=== PATIENT | male | born 1940 | race Caucasian/White ===

== ENCOUNTER → 2016-07-28 | Outpatient (CLI) | payer OTHER | LOC: FIMAGING 09:11 | PROVIDERS: ATTEND Physician Assistant | DX: M51.36 Other intervertebral disc degeneration, lumbar region (principal); M48.06 Spinal stenosis, lumbar region; M54.5 Low back pain ==

== ENCOUNTER 2017-02-23 10:30 | Inpatient (IN) | payer OTHER ==
--- NOTE | 2017-02-23 10:49 | CPEKG ---
Heart Rate: 74 RR Interval: 811 P-R Interval: 184 QRSD Interval: 88 QT Interval: 388 QTC Interval: 431 P Headland: 62 QRS Headland: 1 T Wave Headland: 2 EKG Severity - NORMAL ECG - EKG Impression: SINUS RHYTHM Electronically Signed By: Sabrina Florez 23-Feb-2017 15:13:10
--- NOTE | 2017-02-23 10:50 | EDPHY ---
H & P Time Seen by Provider: 02/23/17 10:45 HPI/ROS: CHIEF COMPLAINT: Left arm weakness and numbness HISTORY OF PRESENT ILLNESS: The patient is an anticoagulated 76 y/o male who complains of left arm weakness and numbness. He awoke at 1:30 a.m. this morning with numbness and weakness of the left upper extremity. He went back to sleep and when he awoke later this morning, the weakness and numbness were still present. He is currently having numbness and weakness, but his range of motion and movement of his fingers have improved. The numbness is primarily located in his left forearm. In addition to the left arm numbness, he also complain of neck pain that radiates to his left shoulder, onset several days ago. He has a history of a CVA in 2008, for which he takes Plavix and Aspirin now. He did not take aspirin or Plavix today. Denies chest pain, difficulty breathing, gait change, headache recent head or neck trauma or other pertinent symptoms. REVIEW OF SYSTEMS: Aside from elements discussed in the HPI, a comprehensive 10-point review of systems was reviewed and is negative. Past Medical/Surgical History: PMH: CVA 2009, hypertension, bursitis Social History: at beside, lives in [place], retired. Smoking Status: Former smoker Physical Exam: General Appearance: Alert, pleasant Eyes: Pupils equal and round, no conjunctival pallor or injection ENT, Mouth: Mucous membranes moist Neck: Tenderness in left neck and shoulder Respiratory: Lungs are clear to auscultation Cardiovascular: Regular rate and rhythm Gastrointestinal: Abdomen is soft and non-tender Neurological: Alert, oriented x3, cranial nerves II through XII intact, motor 4 +/5 left upper extremity, motor otherwise intact, decreased sensation to light touch in left forearm/hand, normal gait Skin: Warm and dry, no rash Extremities: Nontender, no pedal edema Psychiatric: Mood and affect normal Constitutional: Initial Vital Signs Temperature (C) 36.6 C 02/23/17 10:31 Heart Rate 72 02/23/17 10:31 Respiratory Rate 18 02/23/17 10:31 Blood Pressure 199/100 H 02/23/17 10:31 O2 Sat (%) 95 02/23/17 10:31 O2 Delivery Mode Room Air Allergies/Adverse Reactions: sulfites Allergy (Mild, Uncoded 02/23/17 10:38) GI upset Home Medications: Medication Instructions Recorded Acetaminophen [Tylenol ES 500 mg 500 mg PO TID 02/23/17 (*)] Aspirin [Aspirin 81mg (*)] 81 mg PO DAILY 02/23/17 Calcium Carbonate [Tums 500MG (*)] 1,000 - 1,500 mg PO HS 02/23/17 Calcium Carbonate [Tums 500MG (*)] 500 mg PO DAILY18 02/23/17 Cholecalciferol Vit D3 [Vitamin D3 1,000 units PO DAILY 02/23/17 (*)] Cholestyramine (with Sugar) 4 gm PO DAILY 02/23/17 [Cholestyramine Packet] Clopidogrel Bisulfate [Plavix (*)] 75 mg PO DAILY 02/23/17 Glucosamine Sulfate [Glucosamine 500 mg PO DAILY 02/23/17 Sulfate 500 MG (*)] Herbals/Supplements -Info Only 1 ea PO DAILY 02/23/17 Losartan Potassium [Cozaar 50 mg 100 mg PO DAILY 02/23/17 (*)] Ranitidine HCl [Zantac] 150 mg PO DAILY 02/23/17 Medical Decision Making - Diagnostics EKG Interpretation: EKG interpreted by me reveals normal sinus rhythm, normal axis, normal intervals , ST and T segments normal. Interpretation: normal EKG with rate of 74 Imaging Results: Imaging Impressions Head CT 02/23/17 10:46 Impression: 1. No acute intracranial hemorrhage or evidence of acute cortical ischemia. 2. Atrophy and diffuse nonspecific white matter disease. Findings discussed with Emergency Department physician, Sabrina Florez, at 1129 hours 02/23/2017. Imaging: Discussed imaging studies w/ housecalls nurse Radiologist, I viewed and interpreted images myself ED Course/Re-evaluation: The patient is a 76 y/o male who presents with left upper extremity weakness. Given that he awoke with the symptoms at 1:30 a.m. this morning, he is not a tPA candidate. 1125: Spoke with radiologist, he reports the patient's head CT is negative for acute findings. CT results discussed with the patient. Neurologic exam is unchanged. 1132: Consulted with hospitalist service, Dr. Ashford accepts admission of this patient. 1133: Reassessed patient; discussed imaging findings and plan for admission. Patient is comfortable with this plan. The patient passed a swallowing study. Plavix and aspirin given. Neurologic exam remains unchanged. Differential Diagnosis: Altered mental status including but not limited to hypoglycemia, infectious process, electrolyte abnormality, head injury and intoxicants. - Data Points Laboratory Results: Laboratory Results 02/23/17 10:50 02/23/17 10:50 02/23/17 02/23/17 10:50 10:50 WBC 6.55 10^3/uL 10^3/uL (3.80-9.50) RBC 4.53 10^6/uL 10^6/uL (4.40-6.38) Hgb 15.9 g/dL g/dL (13.7-17.5) Hct 47.0 % % (40.0-51.0) MCV 103.8 fL H fL (81.5-99.8) MCH 35.1 pg H pg (27.9-34.1) MCHC 33.8 g/dL g/dL (32.4-36.7) RDW 12.9 % % (11.5-15.2) Plt Count 242 10^3/uL 10^3/uL (150-400) MPV 9.8 fL fL (8.7-11.7) Neut % (Auto) 62.6 % % (39.3-74.2) Lymph % (Auto) 26.0 % % (15.0-45.0) [place] % (Auto) 9.2 % % (4.5-13.0) Eos % (Auto) 0.9 % % (0.6-7.6) Baso % (Auto) 0.5 % % (0.3-1.7) Nucleat RBC Rel Count 0.0 % % (0.0-0.2) Absolute Neuts (auto) 4.11 10^3/uL 10^3/uL (1.70-6.50) Absolute Lymphs (auto) 1.70 10^3/uL 10^3/uL (1.00-3.00) Absolute Monos (auto) 0.60 10^3/uL 10^3/uL (0.30-0.80) Absolute Eos (auto) 0.06 10^3/uL 10^3/uL (0.03-0.40) Absolute Basos (auto) 0.03 10^3/uL 10^3/uL (0.02-0.10) Absolute Nucleated RBC 0.00 10^3/uL 10^3/uL (0-0.01) Immature Gran % 0.8 % % (0.0-1.1) Immature Gran # 0.05 10^3/uL 10^3/uL (0.00-0.10) Sodium 136 mEq/L mEq/L (134-144) Potassium 4.6 mEq/L mEq/L (3.5-5.2) Chloride 101 mEq/L mEq/L (97-110) Carbon Dioxide 22 mEq/l mEq/l (22-31) Anion Gap 13 mEq/L mEq/L (8-16) BUN 21 mg/dL mg/dL (7-23) Creatinine 1.0 mg/dL mg/dL (0.7-1.3) Estimated GFR > 60 Glucose 88 mg/dL mg/dL (70-100) Calcium 11.1 mg/dL H mg/dL (8.5-10.4) Phosphorus 4.1 mg/dL mg/dL (2.5-4.5) Departure - Departure Disposition: [facility] Inpatient Acute Clinical Impression: Stroke Qualifiers: CVA mechanism: other Qualified Code(s): I63.8 - Other cerebral infarction Condition: Fair Report Scribed for: Sabrina Florez Report Scribed by: Laurita Nevarez Date of Report: 02/23/17 Time of Report: 10:46 Physician Review and Approval Statement: 02/23/17 10:46 Portions of this note were transcribed by a medical record technician. I personally performed a history, physical exam, medical decision making, and confirmed accuracy of information the transcribed note.
[2017-02-23 11:00] LABS: % IMMATURE GRANULYOCYTES 0.8 % (0.0-1.1); ABSOLUTE IMMATURE GRANULOCYTES 0.05 10^3/uL (0.00-0.10); ADD DIFF? NO; ADD MORPH? NO; ADD SCAN? NO; ATYPICAL LYMPHOCYTE FLAG 0 (0-99); FRAGMENT RBC FLAG 0 (0-99); HEMOGLOBIN 15.9 g/dL (13.7-17.5); LEFT SHIFT FLG 0 (0-99); LIPEMIA HEMOLYSIS FLAG 90 (0-99); MEAN CELL HEMOGLOBIN 35.1 pg (27.9-34.1); MEAN CELL HEMOGLOBIN CONCENTR. 33.8 g/dL (32.4-36.7); MEAN CELL VOLUME 103.8 fL (81.5-99.8); MEAN PLATELET VOLUME 9.8 fL (8.7-11.7); PLATELET CLUMPS FLAG 10 (0-99); PLATELET COUNT 242 10^3/uL (150-400); RED BLOOD CELL COUNT 4.53 10^6/uL (4.40-6.38); RED CELL DISTRIBUTION WIDTH 12.9 % (11.5-15.2)
[2017-02-23 11:25] LABS: ANION GAP 13 mEq/L (8-16); CALCIUM 11.1 mg/dL (8.5-10.4); CARBON DIOXIDE 22 mEq/l (22-31); CHLORIDE 101 mEq/L (97-110); GLOMERULAR FILTRATION RATE > 60; GLUCOSE 88 mg/dL (70-100); POTASSIUM 4.6 mEq/L (3.5-5.2); SODIUM 136 mEq/L (134-144)
--- NOTE | 2017-02-23 13:59 | PDGENHP ---
History and Physical History and Physical: HISTORY AND PHYSICAL CC:Left arm numbness and weakness HISTORY: The patient reports waking approximately 1 o'clock this morning with weakness and numbness in his left arm. At that point he went back to sleep and woke up with symptoms still present. Comes into the ER now with some improving numbness and weakness still present. There are no other acute focal neurologic changes. He did notice onset of some neck pain a couple of days ago though this sounds like a left trapezoid muscular pain. No headache, no trauma, no fevers, no palpitations, no angina He does take a daily aspirin and Plavix There is a history of a stroke in 2008 detailed below in PMH ROS: A comprehensive 10 system review revealed no other significant findings PAST MEDICAL HISTORY: Stroke in 2008 with good recovery (patient reports that this at that time involved left arm weakness and numbness and some posture weakness, but resolved quickly, ? TIA as he reports his MRI was normal), currently taking aspirin and Plavix Hypertension Hypercholesterolemia on therapy Chronic low back pain Benign prostatic hypertrophy Erectile dysfunction Low testosterone Peripheral neuropathy Obesity Tubular adenoma of the rectum FAMILY MEDICAL HISTORY: coronary artery disease and diabetes SOCIAL HISTORY: and lives with his Former smoker quit many years ago MEDICATIONS: The patients list has been reconciled by our clinical pharmacist in the EMR. I have reviewed the list and ordered appropriate medicines. 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 and wrist and finger extension on the left, otherwise no focal weakness; sensation in limb is now intact Skin: warm, dry, good color, no rash HEENT: normal Neck: no mass or jvd Resps: relaxed Lungs: clear breath sounds Heart: regular, no murmur Abdomen: soft, nondistended, nontender, +BS, no mass Upper Extremities: normal Lower Extremities: no edema, warm No Bleeding or bruising IV site: looks normal LABORATORY DATA: cbc with microcytosis (chronic but no anemia) chem with Ca of 11.1 (no prior hypercalcemia) RADIOLOGY STUDIES: Head CT with no acute abnormality 12 LEAD EKG: my personal interpretation of the tracing: Sinus rhythm without any abnormalities noted ASSESSMENT: -ACUTE ONSET LUE WEAKNESS AND NUMBNESS -I suspect this is a stroke with some ongoing mild weakness, less likely a peripheral nerve or brachial plexus etiology -HYPERCALCEMIA -MICROCYTOSIS, NO PRIOR B12 FOLATE MEASURES -HX OF TREATED HTN AND HYPERCHOLESTEROLEMIA -some elevated blood presssures now PLANS: -admission hospital on observation status for now though depending on progress could potentially need to be here longer -MRI of the brain to look for evidence of stroke which is what I believe is causing his symptoms in his left arm -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 Sabrina Florez I have reviewed the patient's past medical records as part of this assessment, including primary care clinic records
[2017-02-23] MEDS: ASPIRIN 81 MG CHEWABLE TAB PO SCH (16:14)
[2017-02-23] MEDS: CLOPIDOGREL BISULFATE 75 MG TAB PO SCH (16:14)
[2017-02-23] MEDS: ACETAMINOPHEN 500 MG TAB PO SCH ×2 (16:15→21:07)
[2017-02-23] MEDS ORDERED: LABETALOL HCL 5 MG/ML 20 ML MDV IVP PRN (17:23)
[2017-02-23] MEDS ORDERED: ONDANSETRON 4 MG/2 ML VIAL IVP PRN (17:27)
[2017-02-23] MEDS ORDERED: ACETAMINOPHEN 325 MG TAB PO PRN (17:27)
[2017-02-23] MEDS ORDERED: ZOLPIDEM TARTRATE 5 MG TAB PO PRN (17:27)
[2017-02-23] MEDS: CALCIUM CARBONATE 500 MG CHEWABLE TAB PO SCH ×2 (18:06→21:05)
[2017-02-24 05:35] LABS: CHOLESTEROL 173 mg/dL (140-220); CHOLESTEROL/HDL RATIO 3.46 RATIO (1.00-4.97); HIGH DENSITY LIPOPROTEIN 50 mg/dL (40-65); LDL/HDL RATIO 1.96 RATIO (1.00-3.64); LOW DENSITY LIPOPROTEIN 98 mg/dL (80-100); NON-HIGH DENSITY LIPOPROTEIN 123 mg/dL (90-129); TRIGLYCERIDE 125 mg/dL (40-150); VERY LOW DENSITY LIPOPROTEINS 25 mg/dL (8-25)
[2017-02-24] MEDS: FAMOTIDINE 20 MG TAB PO SCH (08:21)
[2017-02-24] MEDS: GLUCOSAMINE SULF 500 MG CAP PO SCH (08:21)
[2017-02-24] MEDS: ACETAMINOPHEN 500 MG TAB PO SCH ×3 (08:21→23:10)
[2017-02-24] MEDS: ASPIRIN 81 MG CHEWABLE TAB PO SCH (08:21)
[2017-02-24] MEDS: CLOPIDOGREL BISULFATE 75 MG TAB PO SCH (08:21)
[2017-02-24] MEDS: CHOLECALCIFEROL VIT D3 1,000 UNITS TAB PO SCH (08:21)
[2017-02-24] MEDS: ENOXAPARIN 40 MG/0.4 ML SYR SC SCH (08:22)
[2017-02-24] MEDS: LOSARTAN POTASSIUM 50 MG TAB PO SCH (08:23)
[2017-02-24] MEDS ORDERED: IOPAMIDOL (ISOVUE 370) 100 ML BTL IV ONE (09:16)
--- NOTE | 2017-02-24 09:35 | NEUROPROG ---
Assessment: HOSPITAL NEUROLOGY CONSULT REQUESTING: Oracio Ashford MD REASON: stroke HPI: 76 year old right-handed man with a history of ischemic stroke (2009, LUE weakness, resolved), HTN, HLD who presented to our ED yesterday with LUE weakness. Patient awoke at 1:00AM on day of presentation feeling his left arm was weak and numb. He thought he slept on his arm or neck wrong and went back to sleep. He awoke later in the morning with persistent symptoms, which inspired his ED visit. He was well outside any thrombolytic/intervention window when he arrived at the ED. He was found to have profound LUE weakness. CT head wo revealed no acute findings. He was admitted for stroke evaluation. He denies any vision changes, speech/language changes, gait change, RUE/BLE problems, SRINIVASAN, fevers. MRI brain wo was done in hospital showing multiple scattered cortically based areas of acute infarct in the RMCA territory. His stroke risk factors include HTN and HLD. He takes ASA 81mg daily and clopidogrel 75mg daily. He states he had a stroke in 2008 - he is not sure of the details in terms of location, mechanism, workup, etc... Today, he still has profound LUE weakness. ROS: As per the HPI, otherwise a complete 12 point ROS was performed and is negative ALLERGIES AND MEDS: As recorded in the EMR - reviewed and reconciled PFSH: As per the intake H&P by Dr. Ashford from yesterday EXAM: VS reviewed in EMR GEN: WDWN laying in NAD HEENT: NCAT, sclera anicteric, conjunctiva not injected, MMM, oropharynx clear, no scalp tenderness NECK: supple, nontender, no meningismus CV: RRR s1 s2 wo m/r/c/g. Carotid pulses 2+ wo bruit NEURO: NIHSS 2 (LUE drift, LUE sensory loss) MS: awake, alert, oriented to all spheres. Speech nondysarthric. No language disturbance. Follows commands. Attends to both sides. Some episodic memory impairment on casual conversation. Mood indifferent, flat affect. Good fund of knowledge. CN: pupils 4mm round and reactive. Fundi with sharp discs. VFF. Primary gaze centered. Restricted vertical gaze. Smooth pursuit with saccadic intrusions. Facial sensation preserved. Face symmetric. Hearing grossly intact to finger rub. Palatoglossal movements intact. Shoulder shrug and head turn strong. MOTOR: normal bulk. Lower tone in the LUE. No adventitial movements. UMN pattern of weakness in the LUE, worse distally - finger/wrist ext 1/5, tricep/ deltoid 4/5. Otherwise full power throughout. SENSORY: reduced LT/PP in LUE. No extinction. COORD: no ataxia FN/HS. Jaciel preserved, with exception of LUE. Romberg neg. REFLEX: plantars equivocal. No clonus. Absent ankle jerks, other DTRS 2/4. GAIT: rises unassisted. Narrow base. Intact stride length/heel strike/toe lift /arm swing. Turns with 3 steps. DATA REVIEW: Labs reviewed in EMR LDL 98 A1c pending TTE pending PERSONALLY INTERPRETED RESULTS AND DATA: MRI brain wo - multiple punctate areas of acute cortically based infarction in the RMCA territory, namely high frontoparietal junction. Profound confluent chronic microvascular ischemic change in the periventricular white matter. Global volume loss. IMPRESSION AND RECOMMENDATIONS: // ACUTE ISCHEMIC STROKE // HTN // HLD Patient with RMCA territory stroke that is cortically based and invokes a mechanism of proximal embolism. Will need CTA head/neck and cardiac workup. - CTA head/neck - TTE - Monitor on tele - cont ASA/clopidogrel for now - introduce statin for goal LDL < 70 - on reviewing outpatient records, this had been discussed in years prior given his prior stroke - A1c < 6.5 - keep SBP < 160 for now, long-term goal normotension - PT/OT/ROD FILLER consults - stroke education - further recommendations pending results of CTA/TTE Objective: Vital Signs Temp Pulse Resp BP Pulse Ox 36.6 C 60 15 157/69 H 94 02/24/17 07:53 02/24/17 07:53 02/24/17 07:53 02/24/17 08:23 02/24/17 07:53 02/23/17 02/24/17 02/25/17 05:59 05:59 05:59 Intake Total 750 Balance 750 Allergies/Adverse Reactions: sulfites Allergy (Mild, Uncoded 02/23/17 10:38) GI upset
[2017-02-24] MEDS: CHOLESTYRAMINE/SUCROSE 4 GM PKT PO SCH (10:12)
[2017-02-24] MEDS ORDERED: FLU VACC QS 2017-18 (3YR+)/PF 0.5 ML SYR (FLUARIX QUAD) IM ONE (11:13)
--- NOTE | 2017-02-24 16:28 | ASMTCMCOM ---
CM Note CM Note Notes: Met with pt and about DC plan. PT/OT recommending inpt rehab but pt would prefer to go home and have outpt therapies. Recommended pt and discuss this with PT and OT therapists tomorrow. also had questions about pt's intial 27 hours as OBS pt. Pt was given WAGGONER notice and was having difficulty interpreting it. Pt has [employer] program. Recommended that call her [email or web address]. C/M to follow. Date Signed: 02/24/2017 04:27 PM Electronically Signed By:Millie Noguera LCSW
[2017-02-24] MEDS: CALCIUM CARBONATE 500 MG CHEWABLE TAB PO SCH ×2 (17:22→19:58)
[2017-02-25 06:49] LABS: ANION GAP 9 mEq/L (8-16); CALCIUM 9.6 mg/dL (8.5-10.4); CARBON DIOXIDE 23 mEq/l (22-31); CHLORIDE 106 mEq/L (97-110); CREATININE 0.9 mg/dL (0.7-1.3); GLOMERULAR FILTRATION RATE > 60; GLUCOSE 91 mg/dL (70-100); POTASSIUM 4.1 mEq/L (3.5-5.2); SODIUM 138 mEq/L (134-144)
--- NOTE | 2017-02-25 07:07 | NEUROPROG ---
Assessment: total unit time of 25 minutes with predominantly counseling and coordination of care. We discussed rehab potential, cause of event and stroke prevention. He has had a small stroke and should remain on the current meds. No role for intervention at this time. Echo is pending today. He should follow up with Dr. Summers in the next month and primary care as well. Subjective: Pt reports that he has more left hand movement today. He denies pain or headache. No other new symptoms. Objective: Vital Signs Temp Pulse Resp BP Pulse Ox 36.9 C 71 18 168/81 H 94 02/25/17 04:56 02/25/17 04:56 02/25/17 04:56 02/25/17 04:56 02/25/17 04:56 Laboratory Results 02/25/17 06:16 02/24/17 02/25/17 02/26/17 05:59 05:59 05:59 Intake Total 450 Balance 450 Alert and attentive with clear and fluent speech. Left hand weakness and drift. Allergies/Adverse Reactions: sulfites Allergy (Mild, Uncoded 02/23/17 10:38) GI upset
[2017-02-25] MEDS: LOSARTAN POTASSIUM 50 MG TAB PO SCH (08:08)
[2017-02-25] MEDS: FAMOTIDINE 20 MG TAB PO SCH (08:08)
[2017-02-25] MEDS: ENOXAPARIN 40 MG/0.4 ML SYR SC SCH (08:08)
[2017-02-25] MEDS: CLOPIDOGREL BISULFATE 75 MG TAB PO SCH (08:08)
[2017-02-25 08:09] VITALS: RESP 21; TEMP 98.1; O2SAT 92
[2017-02-25] MEDS: ASPIRIN 81 MG CHEWABLE TAB PO SCH (08:09)
[2017-02-25] MEDS: CHOLECALCIFEROL VIT D3 1,000 UNITS TAB PO SCH (08:09)
[2017-02-25] MEDS: ACETAMINOPHEN 500 MG TAB PO SCH (08:09)
[2017-02-25] MEDS: GLUCOSAMINE SULF 500 MG CAP PO SCH (08:09)
[2017-02-25] MEDS ORDERED: ATORVASTATIN CALCIUM 10 MG TAB PO SCH (09:00)
[2017-02-25] MEDS: CHOLESTYRAMINE/SUCROSE 4 GM PKT PO SCH (09:47)
--- NOTE | 2017-02-25 11:04 | ECHO ---
[email or web address] [address] Main: [phone] Fax: Transthoracic Echocardiogram Name: RACHAEL VIVAR MR#: [id number] Study Date: 02/25/2017 Study Time: 08:21 AM Date of : 1940 Age: 76 year(s) Height: 167.6 cm (66 in.) Weight: 80.29 kg (177 lb.) BSA: 1.9 m2 Gender: Male Examination: Echo Indication: TIA Image Quality: Contrast: Requested by: Saul Summers BP: 182 mmHg/78 mmHg Heart Rate: Rhythm: Indication: TIA Procedure Staff Referring Physician: GLADIS Manager Supply Chain Planning: Africa Guardado Reading Physician: Kashif Bates Conclusions: Normal size left ventricle. Normal global systolic LV function (EF 71 %). Normal size right ventricle. An agitated saline study was performed and was negative for intracardiac shunting. Trivial mitral valve regurgitation. Trivial to mild aortic valve regurgitation. Trivial tricuspid valve regurgitation. Measurements: Chambers Valvular Assessment AV/MV Valvular Assessment TV/PV Normal Normal Normal Name Value Range Name Value Range Name Value Range Ao Meghan (MM): 3.8 cm (2.2 cm-3.7 AV Vmax: 1.02 m/s (1 m/s-1.7 cm) m/s) IVSd (2D): 0.9 cm (0.6 cm-1.1 AV maxP mmHg ( - ) cm) MV E Vmax: 0.59 cm/s ( - ) LVDd (2D): 4.4 cm (4.2 cm-5.9 MV A Vmax: 0.69 cm/s ( - ) cm) MV E/A: 0.86 ( - ) LVDs (2D): 2.9 cm (2.1 cm-4 cm) LVPWd (2D): 1.1 cm (0.6 cm-1 cm) LVEF (MOD4): 71 % (>=55 %) Continued Measurements: Chambers Valvular Assessment AV/MV Name Value Name Value LA Area: 15.3 cm2 MV E' Septal: 0.06 m/s LA Volume: 39 ml MV E/E' Septal: 9.90 Patient: RACHAEL VIVAR Study Date: 02/25/2017 Page 1 of 2 08:21 AM LA Volume Index: 20.5 ml/m2 MV E/E' Lateral: 7.10 Findings: Left Ventricle: Normal size left ventricle. Normal global systolic LV function (EF 71 %). Right Ventricle: Normal size right ventricle. Left Atrium: The left atrium is normal in size. An agitated saline study was performed and was negative for intracardiac shunting. Right Atrium: The right atrium is normal in size. An agitated saline study was performed and was negative for intracardiac shunting. Mitral Valve: The mitral valve is normal in appearance. Trivial mitral valve regurgitation. Aortic Valve: There is mild thickening of the aortic cusps. Trivial to mild aortic valve regurgitation. Tricuspid Valve: The tricuspid valve appears normal. Trivial tricuspid valve regurgitation. Pulmonic Valve: The pulmonic valve is normal in appearance. Trivial pulmonic valve regurgitation. Great Vessels: Pericardium: No pericardial effusion. There is pericardial fat. (No Signature Object) Patient: RACHAEL VIVAR Study Date: 02/25/2017 Page 2 of 2 08:21 AM [id number]
[2017-02-25] MEDS ORDERED: amLODIPine BESYLATE 5 MG TAB PO SCH (12:30)
[2017-02-25 13:14] VITALS: BP 131/71
[2017-02-25 13:17] VITALS: PULSE 78
--- NOTE | 2017-02-25 13:25 | HOSPPROG ---
Hospitalist Progress Note Assessment/Plan: #Acute embolic stroke: likely embolic from carotid plaque. Rec statin, he wants to talk with PCP. ASA/statin -patient decline inpatient rehab, though I highly recommended it and voiced my concern that he will not get the rehab he needs -add Norvasc for better BP control #Accelerated HTN: Losartan, add Norvasc. Repeat BP on Tuesday with PCP #HLD: he declined at this time. wants to talk with PCP #Diet: cardiac Disp: DC today Subjective: he feels like left arm weakness improved Objective: Vital Signs Temp Pulse Resp BP Pulse Ox 36.7 C 78 21 H 131/71 H 92 02/25/17 08:00 02/25/17 13:16 02/25/17 08:00 02/25/17 13:16 02/25/17 08:00 Laboratory Results 02/25/17 06:16 02/24/17 02/25/17 02/26/17 05:59 05:59 05:59 Intake Total 450 Balance 450 - Physical Exam Constitutional: no apparent distress, other (overweight) Eyes: PERRL Ears, Nose, Mouth, Throat: moist mucous membranes Cardiovascular: regular rate and rhythym, no murmur, rub, or gallop Respiratory: no respiratory distress Gastrointestinal: normoactive bowel sounds Genitourinary: no bladder fullness Skin: warm Musculoskeletal: other (still with LUE weakness) Neurologic: AAOx3, CN II-XII Intact, No facial droop ICD10 Worksheet Patient Problems: Problems Problem Status Onset Stroke Acute
--- NOTE | 2017-02-25 14:42 | GDS ---
[f rep st] DISCHARGE SUMMARY DISCHARGE DIAGNOSES: 1. Acute stroke due carotid soft plaque 2. Ischemic stroke 2008. 3. Hypertension. 4. Hyperlipidemia. HISTORY OF PRESENT ILLNESS: A 76-year-old male with history of prior ischemic stroke in 2008, hypertension, hyperlipidemia who awoke on the day of admission at 1 o'clock in the morning with weakness and numbness in his left arm. He went back to sleep and woke up with symptoms still present. When he arrived in the ER, he had some improvement of his numbness and weakness. Denied headache or trauma. No fevers, chills, or sweats. He takes a daily aspirin and Plavix. HOSPITAL COURSE BY PROBLEM: 1. Acute stroke right paracentral gyral distribution of frontoparietal junction : CTA revealed right carotid bulb tabs, soft plaque into the ICA resulting in 50% stenosis. This was likely the culprit of an embolic stroke. There is not critical stenosis and not good intervention candidate with tandem lesions. No e/ o arrhythmia and no shunt on echocardiogram. He has not failed maximal medical therapy since not on a statin and blood pressure is uncontrolled. He does not want to start a statin until he sees his PCP, because he said he had some sort of reaction in the past. I emphasized the importance of this. We allowed for permissive hypertension at presentation, but still elevated. Added Norvasc and he is to continue his Cozaar and follow up with his PCP. He is on aspirin and Plavix. Dr. Summers ordered an ASA function assay and P2Y12 to ensure responding to therapies. I highly recommended that patient participate in inpatient rehab, but he declined and is to is going to arrange for outpatient speech, OT and physical therapy. 2. Uncontrolled hypertension. Continues on Cozaar. Add Norvasc. He has a followup appointment on Tuesday with his PCP, which can be up-titrated. 3. Hyperlipidemia. Again, goal LDL less than 70. His is 98. Recommend a statin, but he wants to address with his PCP. 4. Prior stroke. Again, plan as stated above. DISPOSITION: Patient is stable for discharge. FOLLOWUP: 1. PCP on Tuesday. 2. Dr. Summers in 1-month. 3. Labs pending, aspirin function assay and P2Y12. 4. Physical therapy, speech therapy per patient's preference outpatient. TIME SPENT ON DISCHARGE: Greater than 60 minutes counseling patient and on antihypertensive treatment and recommendations for rehab. /[id number]/MODL MTDD
--- NOTE | 2017-02-25 16:16 | ASMTCMCOM ---
CM Note CM Note Notes: Pt qualifies for [facility] inpatient rehab but there are no beds at this time. Spoke with pt and who do not want to consider another inpatient acute rehab, a SNF or HHC. 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 Pt medically stable for d/c w support of and son. No CM d/c needs identified. Date Signed: 02/25/2017 04:15 PM Electronically Signed By:ALEK Lange
--- NOTE | 2017-02-25 16:16 | ASDISCHSUM ---
Discharge Information Plan Status:Home with No Needs Medically Cleared to Leave: Discharge Date:02/25/2017 01:50 PM CM D/C Disposition:Home, Routine, Self-Care ADT D/C Disposition:Home, Routine, Self-Care Projected Discharge Date:02/25/2017 01:50 PM Transportation at D/C: Discharge Delay Reason: Follow-Up Date:02/25/2017 01:50 PM Discharge Slot: Final Diagnosis: Placement Information Patient Contact Information Contact Name:MARYLOU Relationship: Address:[address] City:[place] Alternate Phone: [facility]/Zip Code:[place] [address] Email: Financial Information Financial Class:Medicare Advantage Plans Primary Plan Desc:[facility] ADVANTAGE PLANS Primary Plan Number:[id number] Secondary Plan Desc: Secondary Plan Number: Assessment Information [facility] CM Progress Note CM Note CM Note Notes: Met with pt and about DC plan. PT/OT recommending inpt rehab but pt would prefer to go home and have outpt therapies. Recommended pt and discuss this with PT and OT therapists tomorrow. also had questions about pt's intial 27 hours as OBS pt. Pt was given WAGGONER notice and was having difficulty interpreting it. Pt has [employer] program. Recommended that call her insScary Mommy. C/M to follow. Date Signed: 02/24/2017 04:27 PM Electronically Signed By:Millie Noguera LCSW [facility] CM Progress Note CM Note CM Note Notes: Pt qualifies for [facility] inpatient rehab but there are no beds at this time. Spoke with pt and who do not want to consider another inpatient acute rehab, a SNF or HHC. 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. Pt medically stable for d/c w support of and son. No CM d/c needs identified. Date Signed: 02/25/2017 04:15 PM Electronically Signed By:ALEK Lange Intervention Information Intervention Type:*WAGGONER-Signed Date of Service:02/24/2017 09:21 AM Patient Type:Observation Staff Member:Wendy Powers Hours: Discipline: Severity: Comment:
== END 2017-02-25 13:50 | disposition home or self-care (01) | DRG 66 ==
LOC: F3N 13:29 → OBSVTOIN 02-24 16:00
PROVIDERS: ADMIT Internal Medicine; ATTEND Internal Medicine
DX: I63.441 Cerebral infarction due to embolism of right cerebellar artery (principal); I10 Essential (primary) hypertension; E78.5 Hyperlipidemia, unspecified; Z86.73 Personal history of transient ischemic attack (TIA), and cerebral infarction without residual deficits; Z87.891 Personal history of nicotine dependence
CPT/HCPCS: 92523-GN; 97110-GO; 97112-GP; 97116-GP; 97162-GP; 97166-GO; 97535-GO; G0378; G8978-GP-CK; G8979-GP-CJ; G8987-GO-CK; G8988-GO-CI; G9168-GN-CK; G9169-GN-CI; J1650; Q9967

== ENCOUNTER 2017-06-14 02:36 | Observation (INO) | payer OTHER ==
--- NOTE | 2017-06-14 02:52 | EDPHY ---
H & P Stated Complaint: CVA L side arm weakness HPI/ROS: Chief Complaint: Possible stroke HPI: 76-year-old male with a history of CVA in the past, last one 4 months ago , woke at 1:30 a.m. this morning with left leg weakness. Patient is says that she had to assist him to get up to the bathroom, he was having difficulty moving his left leg and left arm. This is similar to prior stroke symptoms. He does not have residual weakness. He was last normal at 11:00 p.m. when he went the bed. Patient arrived in the emergency department at 2:35 a.m. denies any headache. No falls. No chest pain shortness of breath. Patient states that he is feeling a bit better but his notice that he is answering a bit slowly. Patient is mildly confused. Patient states that the symptoms began just after dinner after he drank a gin and tonic. ROS: 10 point Review of Systems is negative except as noted in the HPI. PMH: CVA, hyperlipidemia Social History: No smoking, occasional alcohol, no recreational drug use Family History: non-contributory Physical Exam: Gen: Awake, Alert, No Distress HEENT: Nose: no rhinorrhea Eyes: PERRLA, EOMI Mouth: Moist mucosa Neck: Supple, no JVD Chest: nontender, lungs clear to auscultation Heart: S1, S2 normal, no murmur Abd: Soft, non-tender, no guarding Back: no CVA tenderness, no midline tenderness Ext: no edema, non-tender Skin: no rash Neuro: See NIH stroke score - Personal History Current Tetanus/Diphtheria Vaccine: Unsure Current Tetanus Diphtheria and Acellular Pertussis (TDAP): Unsure - Medical/Surgical History Hx Asthma: No Hx Chronic Respiratory Disease: No Hx Diabetes: No Hx Cardiac Disease: No Hx Renal Disease: No Hx Cirrhosis: No Hx Alcoholism: No Hx HIV/AIDS: No Hx Splenectomy or Spleen Trauma: No Other PMH: CVA 2008, 02/20. ?bursitis R HIP. post fall on Jun 2016. HTN - Social History Smoking Status: Former smoker Constitutional: Initial Vital Signs Temperature (C) 36.6 C 06/14/17 02:38 Heart Rate 78 06/14/17 02:38 Respiratory Rate 16 06/14/17 02:38 Blood Pressure 174/75 H 06/14/17 02:38 O2 Sat (%) 93 06/14/17 02:38 O2 Delivery Mode Room Air Allergies/Adverse Reactions: sulfites Allergy (Mild, Uncoded 02/23/17 10:38) GI upset Home Medications: Medication Instructions Recorded Acetaminophen [Tylenol ES 500 mg 500 mg PO TID 02/23/17 (*)] Aspirin [Aspirin 81mg (*)] 81 mg PO DAILY 02/23/17 Calcium Carbonate [Tums 500MG (*)] 1,000 - 1,500 mg PO HS 02/23/17 Calcium Carbonate [Tums 500MG (*)] 500 mg PO DAILY18 02/23/17 Cholecalciferol Vit D3 [Vitamin D3 1,000 units PO DAILY 02/23/17 (*)] Cholestyramine (with Sugar) 4 gm PO DAILY 02/23/17 [Cholestyramine Packet] Clopidogrel Bisulfate [Plavix (*)] 75 mg PO DAILY 02/23/17 Glucosamine Sulfate [Glucosamine 500 mg PO DAILY 02/23/17 Sulfate 500 MG (*)] Herbals/Supplements -Info Only 1 ea PO DAILY 02/23/17 Losartan Potassium [Cozaar 50 mg 100 mg PO DAILY 02/23/17 (*)] Ranitidine HCl [Zantac] 150 mg PO DAILY 02/23/17 amLODIPine BESYLATE [Norvasc 5 mg 5 mg PO DAILY #30 tab 02/25/17 (*)] Medical Decision Making - Diagnostics Imaging Results: CT scan of the brain is negative for acute process per Dr. Zapien. CT scan angiogram of the head shows some mild stenosis of increased internal carotid arteries which is unchanged from the CT scan in February. Per Dr. Zapien. ED Course/Re-evaluation: 76-year-old male presenting with complaints of left leg and arm weakness. Patient has a history of a stroke in February. NIH score here is 0. The patient was last normal at 11 o'clock, over 3 and 0.5 hr prior to arrival. Will obtain CT scan of his head in plans CT angiogram. Admit for further evaluation. CT head is negative for acute process, CT angiogram is negative for acute process. Discussed with hospitalist, Dr. Weiner. He will admit for further evaluation. - Data Points Laboratory Results: Laboratory Results 06/14/17 02:51 06/14/17 02:51 06/14/17 06/14/17 06/14/17 02:51 02:51 02:51 WBC RBC Hgb POC Hgb Hct POC Hct MCV MCH MCHC RDW Plt Count MPV Neut % (Auto) Lymph % (Auto) [place] % (Auto) Eos % (Auto) Baso % (Auto) Nucleat RBC Rel Count Absolute Neuts (auto) Absolute Lymphs (auto) Absolute Monos (auto) Absolute Eos (auto) Absolute Basos (auto) Absolute Nucleated RBC Immature Gran % Immature Gran # PT 13.1 SEC SEC (12.0-15.0) INR 0.97 (0.83-1.16) APTT 22.1 SEC L SEC (23.0-38.0) POC Sodium Sodium 139 mEq/L mEq/L (134-144) POC Potassium Potassium 4.2 mEq/L mEq/L (3.5-5.2) POC Chloride Chloride 103 mEq/L mEq/L (97-110) Carbon Dioxide 19 mEq/l L mEq/l (22-31) Anion Gap 17 mEq/L H mEq/L (8-16) POC BUN BUN 23 mg/dL mg/dL (7-23) Creatinine 1.0 mg/dL mg/dL (0.7-1.3) POC Creatinine Estimated GFR > 60 Glucose 90 mg/dL mg/dL (70-100) POC Glucose Hemoglobin A1c Pending Estim Average Glucose Pending Calcium 10.3 mg/dL mg/dL (8.5-10.4) Ethyl Alcohol 46 mg/dL H mg/dL (0-10) 06/14/17 06/14/17 02:51 02:46 WBC 6.91 10^3/uL 10^3/uL (3.80-9.50) RBC 3.91 10^6/uL L 10^6/uL (4.40-6.38) Hgb 13.6 g/dL L g/dL (13.7-17.5) POC Hgb 14.3 gm/dL gm/dL (13.7-17.5) Hct 39.0 % L % (40.0-51.0) POC Hct 42 % % (40-51) MCV 99.7 fL fL (81.5-99.8) MCH 34.8 pg H pg (27.9-34.1) MCHC 34.9 g/dL g/dL (32.4-36.7) RDW 13.2 % % (11.5-15.2) Plt Count 272 10^3/uL 10^3/uL (150-400) MPV 9.4 fL fL (8.7-11.7) Neut % (Auto) 70.6 % % (39.3-74.2) Lymph % (Auto) 18.8 % % (15.0-45.0) [place] % (Auto) 8.0 % % (4.5-13.0) Eos % (Auto) 1.3 % % (0.6-7.6) Baso % (Auto) 0.6 % % (0.3-1.7) Nucleat RBC Rel Count 0.0 % % (0.0-0.2) Absolute Neuts (auto) 4.88 10^3/uL 10^3/uL (1.70-6.50) Absolute Lymphs (auto) 1.30 10^3/uL 10^3/uL (1.00-3.00) Absolute Monos (auto) 0.55 10^3/uL 10^3/uL (0.30-0.80) Absolute Eos (auto) 0.09 10^3/uL 10^3/uL (0.03-0.40) Absolute Basos (auto) 0.04 10^3/uL 10^3/uL (0.02-0.10) Absolute Nucleated RBC 0.00 10^3/uL 10^3/uL (0-0.01) Immature Gran % 0.7 % % (0.0-1.1) Immature Gran # 0.05 10^3/uL 10^3/uL (0.00-0.10) PT INR APTT POC Sodium 137 mEq/L mEq/L (134-144) Sodium POC Potassium 3.9 mEq/L mEq/L (3.3-5.0) Potassium POC Chloride 101 mEq/L mEq/L (97-110) Chloride Carbon Dioxide Anion Gap POC BUN 23 mg/dL mg/dL (7-23) BUN Creatinine POC Creatinine 1.1 mg/dL mg/dL (0.7-1.3) Estimated GFR Glucose POC Glucose 96 mg/dL mg/dL (70-100) Hemoglobin A1c Estim Average Glucose Calcium Ethyl Alcohol Point of Care Test Results: 06/14/17 02:46 POC Sodium 137 POC Potassium 3.9 POC Chloride 101 POC BUN 23 POC Creatinine 1.1 POC Glucose 96 Departure - Departure Disposition: [facility] Inpatient Acute Clinical Impression: Transient cerebral ischemia Condition: Fair NIH Stroke Scale Date of Exam: 06/14/17 Time of Exam: 02:40 Level of Consciousness: Alert LOC Questions: Answers Both LOC Commands: Performs Both Correctly Best Gaze: Normal Visual: No Visual Loss Facial Palsy: Normal Motor Arm-Left: No Drift Motor Arm-Right: No Drift Motor Leg-Left: No Drift Motor Leg-Right: No Drift Limb Ataxis: Absent Sensory: Normal Best Language: No Aphasia Dysarthria: Normal Extinction and Inattention (Neglect): No Abnormality NIH Scale Score: 0
[2017-06-14 03:26] LABS: PLATELET COUNT 272 10^3/uL (150-400)
--- NOTE | 2017-06-14 03:33 | CPEKG ---
Heart Rate: 77 RR Interval: 779 P-R Interval: 192 QRSD Interval: 96 QT Interval: 392 QTC Interval: 444 P Ste[place]: 59 QRS [place]: 23 T Wave [place]: 25 EKG Severity - NORMAL ECG - EKG Impression: SINUS RHYTHM Electronically Signed By: Max Galicia 14-Jun-2017 04:41:15
[2017-06-14 03:38] LABS: INR 0.97 (0.83-1.16); PROTIME(PATIENT) 13.1 SEC (12.0-15.0)
[2017-06-14] MEDS ORDERED: ACETAMINOPHEN 325 MG TAB PO PRN (03:42)
[2017-06-14] MEDS ORDERED: ONDANSETRON 4 MG/2 ML VIAL IVP PRN (03:42)
[2017-06-14] MEDS ORDERED: ONDANSETRON DISINTEGRATING 4 MG TAB PO PRN (03:42)
[2017-06-14] MEDS ORDERED: IOPAMIDOL (ISOVUE 370) 100 ML BTL IV ONE (05:34)
[2017-06-14 05:55] LABS: PLATELET COUNT 279 10^3/uL (150-400)
--- NOTE | 2017-06-14 05:58 | PDGENHP ---
History and Physical - Chief Complaint Left sided weakness - History of Present Illness 76 yo M w/ hx of multiple CVAs, HTN, and HLD presents with left sided weakness. Patient awoke around 1:30 AM with left arm and leg weakness. His then brought him to the ED for evaluation. Per ED physician Dr. Galicia, weakness was imperceptible by the time of his arrival in the ED around 3 AM. Patient was most recently here for ischemic CVA in February of 2017. Patient states his left sided deficits from that stroke have resolved. He started Crestor 5 mg daily since that event and has been compliant with aspirin and Plavix. History Information - Allergies/Home Medication List Allergies/Adverse Reactions: sulfites Allergy (Mild, Uncoded 02/23/17 10:38) GI upset Home Medications: Acetaminophen [Tylenol ES 500 mg (*)] 500 mg PO TID 02/23/17 [Last Taken ] Aspirin [Aspirin 81mg (*)] 81 mg PO DAILY 02/23/17 [Last Taken 02/22/17] Calcium Carbonate [Tums 500MG (*)] 1,000 - 1,500 mg PO HS 02/23/17 [Last Taken 02/22/17] Calcium Carbonate [Tums 500MG (*)] 500 mg PO DAILY18 02/23/17 [Last Taken ] Cholecalciferol Vit D3 [Vitamin D3 (*)] 1,000 units PO DAILY 02/23/17 [Last Taken 02/22/17] Cholestyramine (with Sugar) [Cholestyramine Packet] 4 gm PO DAILY 02/23/17 [ Last Taken 02/22/17] Clopidogrel Bisulfate [Plavix (*)] 75 mg PO DAILY 02/23/17 [Last Taken 02/22/17] Glucosamine Sulfate [Glucosamine Sulfate 500 MG (*)] 500 mg PO DAILY 02/23/17 [ Last Taken 02/22/17] Herbals/Supplements -Info Only 1 ea PO DAILY 02/23/17 [Last Taken Unknown] Losartan Potassium [Cozaar 50 mg (*)] 100 mg PO DAILY 02/23/17 [Last Taken 02/22] Ranitidine HCl [Zantac] 150 mg PO DAILY 02/23/17 [Last Taken 02/22/17] I have personally reviewed and updated: family history, medical history - Past Medical History CVA, hypertension - Family History Positive for: cancer - Social History Smoking Status: Former smoker Review of Systems Review of Systems: ROS: 10pt was reviewed & negative except for what was stated in HPI & below Physical Exam Physical Exam: Temp Pulse Resp BP Pulse Ox 36.6 C 80 22 H 146/75 H 95 06/14/17 02:38 06/14/17 04:00 06/14/17 04:00 06/14/17 04:00 06/14/17 04:00 O2 (L/minute) 2 Constitutional: no apparent distress, not in pain Eyes: PERRL, EOMI Ears, Nose, Mouth, Throat: moist mucous membranes, no oral mucosal ulcers Cardiovascular: regular rate and rhythym, no murmur, rub, or gallop Respiratory: no respiratory distress, no rales or rhonchi Gastrointestinal: normoactive bowel sounds, soft, non-tender abdomen Skin: warm, normal color Musculoskeletal: full muscle strength, no muscle tenderness Neurologic: AAOx3, sensation intact bilaterally, CN II-XII Intact, other (NIHSS 0), No weakness, No numbness, No facial droop Psychiatric: interacting appropriately, not anxious Lab Data & Imaging Review 06/14/17 02:51 06/14/17 02:51 WBC 6.91 10^3/uL (3.80-9.50) 06/14/17 02:51 RBC 3.91 10^6/uL (4.40-6.38) L 06/14/17 02:51 Hgb 13.6 g/dL (13.7-17.5) L 06/14/17 02:51 POC Hgb 14.3 gm/dL (13.7-17.5) 06/14/17 02:46 Hct 39.0 % (40.0-51.0) L 06/14/17 02:51 POC Hct 42 % (40-51) 06/14/17 02:46 MCV 99.7 fL (81.5-99.8) 06/14/17 02:51 MCH 34.8 pg (27.9-34.1) H 06/14/17 02:51 MCHC 34.9 g/dL (32.4-36.7) 06/14/17 02:51 RDW 13.2 % (11.5-15.2) 06/14/17 02:51 Plt Count 272 10^3/uL (150-400) 06/14/17 02:51 MPV 9.4 fL (8.7-11.7) 06/14/17 02:51 Neut % (Auto) 70.6 % (39.3-74.2) 06/14/17 02:51 Lymph % (Auto) 18.8 % (15.0-45.0) 06/14/17 02:51 [place] % (Auto) 8.0 % (4.5-13.0) 06/14/17 02:51 Eos % (Auto) 1.3 % (0.6-7.6) 06/14/17 02:51 Baso % (Auto) 0.6 % (0.3-1.7) 06/14/17 02:51 Nucleat RBC Rel Count 0.0 % (0.0-0.2) 06/14/17 02:51 Absolute Neuts (auto) 4.88 10^3/uL (1.70-6.50) 06/14/17 02:51 Absolute Lymphs (auto) 1.30 10^3/uL (1.00-3.00) 06/14/17 02:51 Absolute Monos (auto) 0.55 10^3/uL (0.30-0.80) 06/14/17 02:51 Absolute Eos (auto) 0.09 10^3/uL (0.03-0.40) 06/14/17 02:51 Absolute Basos (auto) 0.04 10^3/uL (0.02-0.10) 06/14/17 02:51 Absolute Nucleated RBC 0.00 10^3/uL (0-0.01) 06/14/17 02:51 Immature Gran % 0.7 % (0.0-1.1) 06/14/17 02:51 Immature Gran # 0.05 10^3/uL (0.00-0.10) 06/14/17 02:51 PT 13.1 SEC (12.0-15.0) 06/14/17 02:51 INR 0.97 (0.83-1.16) 06/14/17 02:51 APTT 22.1 SEC (23.0-38.0) L 06/14/17 02:51 POC Sodium 137 mEq/L (134-144) 06/14/17 02:46 Sodium 139 mEq/L (134-144) 06/14/17 02:51 POC Potassium 3.9 mEq/L (3.3-5.0) 06/14/17 02:46 Potassium 4.2 mEq/L (3.5-5.2) 06/14/17 02:51 POC Chloride 101 mEq/L (97-110) 06/14/17 02:46 Chloride 103 mEq/L (97-110) 06/14/17 02:51 Carbon Dioxide 19 mEq/l (22-31) L 06/14/17 02:51 Anion Gap 17 mEq/L (8-16) H 06/14/17 02:51 POC BUN 23 mg/dL (7-23) 06/14/17 02:46 BUN 23 mg/dL (7-23) 06/14/17 02:51 Creatinine 1.0 mg/dL (0.7-1.3) 06/14/17 02:51 POC Creatinine 1.1 mg/dL (0.7-1.3) 06/14/17 02:46 Estimated GFR > 60 06/14/17 02:51 Glucose 90 mg/dL (70-100) 06/14/17 02:51 POC Glucose 96 mg/dL (70-100) 06/14/17 02:46 Calcium 10.3 mg/dL (8.5-10.4) 06/14/17 02:51 Ethyl Alcohol 46 mg/dL (0-10) H 06/14/17 02:51 Imaging Review: CTA Head/Neck preliminary read: No acute findings No sig change since Feb 24 d/w ML at 339 Visualized and Interpreted EKG results: Yes EKG Interpretation: Positive for: normal sinsus rhythm Assessment & Plan Assessment: 76 yo M w/ hx of multiple CVAs, HTN, and HLD presents with transient left sided weakness. Plan: 1. TIA - Left sided arm and leg weakness noted around 1:30 AM; mostly resolved by time of arrival in ED around 3 AM. Patient still feels some subtle weakness in his left hand but this is imperceptible on my exam. NIHSS 0 on my evaluation - CT Head, CTA Head/Neck reported as unchanged from prior on preliminary read - Monitor on telemetry, ECG in NSR on admission - TTE during February admission did not reveal interatrial communication, will not repeat - MRI brain ordered - PT/OT/CLOUD SERVICES ARCHITECT miguel - Will recheck lipid panel noting not on high intensity Crestor dose (only on 5 mg qD), will likely benefit from dose increase - BP 180/90 currently; will allow for permissive hypertension for 24 hours but needs tighter BP control - Neurology consult placed 2. Hx of multiple prior CVAs - Most recently on 02/20 thought to be 2/2 carotid plaque resulting in acute stroke at R frontoparietal junction. He denies persistent deficits from this stroke. - Compliant with ASA, Plavix, statin - May benefit from statin dose increase - Needs tighter BP control - Consider Holter monitor - Neurology consult placed 3. HTN - On losartan 100 mg qD and amlodipine 5 mg qD as outpatient. Monitor BP and consider increase after 24 period of permissive HTN. 4. HLD - On Crestor 5 mg qD; rechecking lipid panel. Diet - Regular after swallow screen Code - Full Ppx - SCDs Dispo - Admit to observation status
[2017-06-14] MEDS ORDERED: CALCIUM CARBONATE 500 MG CHEWABLE TAB PO PRN ×2 (11:36→20:53)
--- NOTE | 2017-06-14 12:29 | NEUROPROG ---
Assessment: HOSPITAL NEUROLOGY CONSULT REQUESTING: Jorge Joy MD REASON: stroke HPI: 76 year old right-handed man known to me from prior admission for stroke () who presented to our facility 06/14/17 with LUE and LLE weakness and numbness. Patient had an ischemic stroke in February manifest as LUE weakness. He was found to have small embolic strokes in the RMCA territory and evidence of 50% stenosis in the proximal MARTHA and more distal tandem stenosis of 30% with softer plaque. He was started on maximum medical therapy with dual antiplatelet therapy, statin and recommendations to have his BP optimized. He remained on DAP, but in the subsequent outpatient records has remained hypertensive and stopped his statin due to muscle aches (no CK checked). He was supposed to have cardiac rhythm monitoring as an outpatient (considering both ILR and surface monitoring) but he never had that done either. He reported to our ED early this morning after waking in the middle of the night with left arm and leg weakness and numbness. He woke around 1:30AM and got out of bed and fell to the ground, realizing his left sided deficits at that time. His got him to the ED, but he was found to have imperceptible deficits on arrival at 3AM, so he was not deemed an thrombolytic/intervention candidate. CT head wo showed nothing acute. CTA head/neck showed no change from his prior vascular imaging study in February. He was admitted for further evaluation. On our discussion today, patient still feels weak and numb in the left arm and leg. He denies any other symptoms. ROS: As per the HPI, otherwise a complete 12 point ROS was performed and is negative ALLERGIES AND MEDS: As recorded in the EMR - reviewed and reconciled PFSH: As per the intake H&P by Dr. Joy from today EXAM: VS reviewed in EMR GEN: WDWN laying in NAD HEENT: NCAT, sclera anicteric, conjunctiva not injected, MMM, oropharynx clear, no scalp tenderness NECK: supple, nontender, no meningismus CV: RRR s1 s2 wo m/r/c/g. Carotid pulses 2+ wo bruit NEURO: NIHSS 2 (1 LUE motor, 1 sensory) MS: awake, alert, oriented to all spheres. Speech nondysarthric. No language disturbance. Follows commands. Attends to both sides. Episodic memory loss on casual conversation. Mood depressed. Good fund of knowledge. CN: pupils 3mm round and reactive. Fundi with sharp discs. VFF. Primary gaze centered. Restricted vertical gaze. Facial sensation preserved. Face symmetric. Hearing grossly intact to finger rub. Palatoglossal movements intact. Shoulder shrug and head turn strong. MOTOR: normal bulk. Lower tone in the LUE. No adventitial movements. UMN pattern of weakness in LUE/LLE at 4/5. SENSORY: reduced PP/LT in LUE. No extinction. COORD: no ataxia FN/HS. Jaciel labored in LUE. REFLEX: plantar down right, equivocal left. No clonus. Brisker DTRs on left at 3/4, right side DTRS 2/4. GAIT: deferred to PT safety eval DATA REVIEW: Labs reviewed in EMR A1c 5.4 LDL pending PERSONALLY INTERPRETED RESULTS AND DATA: CTA head/neck - stable 50% stenosis right carotid bulb extending up to the proximal MARTHA with mixed soft plaque and calcific plaque with tandem high extracranial ICA stenosis of 30%. MRI brain wo - multiple punctate areas of acute infarct in the right frontal cortex and juxtacortical regions, as well as a few areas of cortically-based acute infarct in the right parietal lobe and at least two definite areas of acute infarct in the medial occipital lobe. IMPRESSION AND RECOMMENDATIONS: // ACUTE ISCHEMIC STROKE // MARTHA STENOSIS WITH TANDEM LESIONS // HTN // HLD // HX MULTIPLE PRIOR STROKES Patient with acute ischemic strokes of the right hemisphere manifest as LUE/LLE weakness and numbness. This echols his 3rd ischemic stroke with left-sided deficits (note he experience a stroke in 2008 with LUE weakness). This is in the setting of noncritical MARTHA stenosis with tandem lesions of mixed soft/calcific plaque. The challenging caveat with this stroke is the occipital lobe involvement, which is BODY TECHNICIAN distribution. He does have a normal teller of Marcum. Certainly he could have embolized to the BODY TECHNICIAN region via the posterior communicating artery. But cardioembolism remains a possible etiology. However, given the known carotid stenosis, and his recurrent strokes manifest as left-sided deficits, I think the carotid is still culprit. For now, I would favor aggressive maximum medical management, as he has not failed this yet (though attempts have been made to start this) and his stenosis is not critical enough for emergent intervention. I still would like him to have an ILR placed, preferentially during this hospitalization - certainly if afib is captured after placement he should be transitioned to anticoagulation. - cont ASA and clopidogrel - goal normotension - this needs to be aggressive - goal long-term SBP should be at least < 130, but ideally < 120. - he should restart statin - he is high risk and needs the pleiotropic benefits of this medication class. Would restart rosuvastatin at 5mg daily. If muscle aches re-emerge, CK must be checked and if normal, then he can reduce his dose to QOD or switch to pravastatin. He could also start ezetimibe in conjunction with statin for aggressive LDL management to get his LDL to a goal of less than 70. - recommend outpatient NICOLAS screening - recommend inpatient cardiology consult for ILR placement - PT/OT/STACK YIELD ENGINEER consults - stroke education - followup with PCP immediately after discharge - followup with cardiology at their discretion post-ILR placement - followup neurology clinic in 6 weeks Objective: Vital Signs Temp Pulse Resp BP Pulse Ox 36.6 C 77 20 135/73 H 94 06/14/17 07:31 06/14/17 11:07 06/14/17 11:07 06/14/17 11:07 06/14/17 11:07 Laboratory Results 06/14/17 03:55 06/14/17 03:55 06/13/17 06/14/17 06/15/17 05:59 05:59 05:59 Output Total 325 Balance -325 PT 13.1 SEC (12.0-15.0) 06/14/17 02:51 INR 0.97 (0.83-1.16) 06/14/17 02:51 Allergies/Adverse Reactions: sulfites Allergy (Mild, Uncoded 02/23/17 10:38) GI upset
--- NOTE | 2017-06-14 15:12 | HOSPPROG ---
Hospitalist Progress Note Assessment/Plan: 76 yo M w/ hx of multiple CVAs, HTN, and HLD presents with transient left sided weakness. Today is my 1st encounter with the patient. Chart reviewed. * acute ischemic stroke Right hemispheric with left upper and left lower extremity weakness and numbness (cont to have some residual) This is his 3rd stroke Will ask Cardiology to consider placing a link monitor prior to discharge CT of the head showed nothing acute CTA of the head and neck showed no change from his prior imaging in February MRI shows multiple areas of acute infarct in the right frontal cortex and juxta cortical regions and a few areas in the right parietal lobe Reviewed neurology's notes Continue statin Obstructive sleep apnea screening should be performed in OP setting lipid panel pending reviewed telemetry monitoring, no afib noted AIC is stable at 5.4 * hypertension will allow for permissive htn in the setting of a stroke *elevated alcohol level at 46 did not review this on this visit unclear if this is any concern or not * hyperlipidemia on Crestor Has had some aches with this medication could consider Pravastatin if he still has issues with this * 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 >35 minutes face to face with patient and his reviewing care and the importance of monitoring him on telemetry, reviewing labs, etc. Subjective: Johnnie is anxious to be dc. Objective: Vital Signs Temp Pulse Resp BP Pulse Ox 36.6 C 77 20 135/73 H 94 06/14/17 07:31 06/14/17 11:07 06/14/17 11:07 06/14/17 11:07 06/14/17 11:07 Laboratory Results 06/14/17 03:55 06/14/17 03:55 06/13/17 06/14/17 06/15/17 05:59 05:59 05:59 Output Total 325 Balance -325 PT 13.1 SEC (12.0-15.0) 06/14/17 02:51 INR 0.97 (0.83-1.16) 06/14/17 02:51 - Physical Exam Constitutional: no apparent distress, appears nourished Eyes: PERRL Ears, Nose, Mouth, Throat: hearing normal Cardiovascular: regular rate and rhythym Respiratory: no respiratory distress Gastrointestinal: normoactive bowel sounds Skin: warm Musculoskeletal: generalized weakness (slightly weaker on left leg, and left medical appointment scheduler weaker) Neurologic: AAOx3, CN II-XII Intact, No facial droop Psychiatric: interacting appropriately, anxious ICD10 Worksheet Patient Problems: Problems Problem Status Onset Transient cerebral ischemia Acute Stroke Acute
[2017-06-14] MEDS ORDERED: LIDOCAINE 1% 300 MG/30 ML SDV SC ONE (15:22)
--- NOTE | 2017-06-14 16:19 | PDCARPN ---
Cardiology Progress Note Chief Complaint: cryptogenic stroke Assessment/Plan: Assessment: 76M PMH carotid dz, strokes re-presents with stroke. #. cryptogenic stroke: ILR implant dictated R/B/A reviewed Plan for implant in AM Plan: 06/14/17 16:18 Reviewed/Discussed With: hospitalist (Kathryn Brown) Objective: Vital Signs (8 Hrs) Pulse Resp BP Pulse Ox 06/14/17 11:07 77 20 135/73 H 94 Intake/Output (24 Hrs) 06/13/17 06/14/17 06/15/17 05:59 05:59 05:59 Output Total 325 Balance -325 Output: Urine (ml) 325 Urinal 325 Other: Weight 85 kg Number of Voids Toilet 1 Number of Stools Toilet 1 Result Diagrams: 06/14/17 03:55 06/14/17 03:55 EKG: SR bord 1st deg AVB Telemetry: SR - Physical Exam Constitutional: no apparent distress Eyes: anicteric sclera Ears, Nose, Mouth, Throat: moist mucous membranes Cardiovascular: regular rate and rhythm ICD10 Worksheet Patient Problems: Problems Problem Status Onset Transient cerebral ischemia Acute Stroke Acute
--- NOTE | 2017-06-14 17:00 | ASMTCMCOM ---
CM Note CM Note Notes: Pt in for stroke (pts 3rd stroke). LOOM CHECKER rec inpatient rehab vs outpatient, PT eval pending. Chart review indicates last admit 02/20 pt and were adamant pt return home and not consider a rehab placement. CM to follow for d/c needs. Date Signed: 06/14/2017 05:00 PM Electronically Signed By:ALEK Lange
[2017-06-14 20:59] VITALS: O2SAT 94
[2017-06-14] MEDS: PANTOPRAZOLE SODIUM 40 MG TAB PO SCH (22:30)
[2017-06-15 04:21] VITALS: PULSE 63
[2017-06-15] MEDS ORDERED: LIDOCAINE 1% 300 MG/30 ML SDV SC ONE (07:17)
[2017-06-15 08:13] VITALS: BP 137/80; RESP 14; TEMP 98.6
[2017-06-15] MEDS ORDERED: CLOPIDOGREL BISULFATE 75 MG TAB PO SCH (09:00)
[2017-06-15] MEDS ORDERED: MULTIVITAMINS 1 EACH TAB PO SCH (09:00)
[2017-06-15] MEDS ORDERED: amLODIPine BESYLATE 5 MG TAB PO SCH (09:00)
[2017-06-15] MEDS ORDERED: CHOLESTYRAMINE/SUCROSE 4 GM PKT PO SCH (09:00)
[2017-06-15] MEDS ORDERED: ROSUVASTATIN CALCIUM 10 MG TAB PO SCH (09:00)
[2017-06-15] MEDS ORDERED: GLUCOSAMINE SULF 500 MG CAP PO SCH (09:00)
[2017-06-15] MEDS ORDERED: ASPIRIN 81 MG CHEWABLE TAB PO SCH (09:00)
[2017-06-15] MEDS ORDERED: PRESERVISION AREDS2 FORMULA EYE VIT 1 EACH PO SCH (09:00)
[2017-06-15] MEDS ORDERED: LOSARTAN POTASSIUM 50 MG TAB PO SCH (09:00)
[2017-06-15] MEDS ORDERED: CHOLECALCIFEROL VIT D3 2,000 UNITS TAB/CAP PO SCH (09:00)
[2017-06-15] MEDS ORDERED: LIDOCAINE 1% 300 MG/30 ML SDV ONE (09:21)
--- NOTE | 2017-06-15 10:06 | PDHPUP ---
History & Physical Update H&P update statement: This history and physical update is based on an assessment of the patient which was completed after admission or registration (within 24 hours), but prior to the surgery/procedure. H&P update: H&P reviewed & patient examined, no change in patient's condition since H&P completed
--- NOTE | 2017-06-15 10:15 | SUROPNOTE ---
[facility] Operative Report - Surgery PROCEDURE: LINQ IMPLANT INDICATIONS: CONCERNS ABOUT PAROXYSMAL ATRIAL FIBRILLATION ETIOLOGY FOR CVAs PROCEDURE DETAILS: After consent was obtained, the patient was prepped and draped in the usual sterile fashion. Lidocaine was used for local anesthetic to the left sternal border (2nd and 3rd intercostal space). A small incision was made with the #12 blade, and the provided blade was used for proper width and breath. The rail delivery system was used to implant the LINQ without difficulty. Four zohreh were used to close the incision. No complications. Patient tolerated procedure without issues. Waveform analysis was very good. Follow up with [facility] in 5-7 days
[2017-06-15] MEDS: PANTOPRAZOLE SODIUM 40 MG TAB PO SCH (10:51)
--- NOTE | 2017-06-15 11:51 | NEUROPROG ---
Assessment: BACKGROUND: 06/14 76 year old right-handed man known to me from prior admission for stroke () who presented to our facility 06/14/17 with LUE and LLE weakness and numbness. Patient had an ischemic stroke in February manifest as LUE weakness. He was found to have small embolic strokes in the RMCA territory and evidence of 50% stenosis in the proximal MARTHA and more distal tandem stenosis of 30% with softer plaque. He was started on maximum medical therapy with dual antiplatelet therapy, statin and recommendations to have his BP optimized. He remained on DAP, but in the subsequent outpatient records has remained hypertensive and stopped his statin due to muscle aches (no CK checked). He was supposed to have cardiac rhythm monitoring as an outpatient (considering both ILR and surface monitoring) but he never had that done either. He reported to our ED early this morning after waking in the middle of the night with left arm and leg weakness and numbness. He woke around 1:30AM and got out of bed and fell to the ground, realizing his left sided deficits at that time. His got him to the ED, but he was found to have imperceptible deficits on arrival at 3AM, so he was not deemed an thrombolytic/intervention candidate. CT head wo showed nothing acute. CTA head/neck showed no change from his prior vascular imaging study in February. He was admitted for further evaluation. On our discussion today, patient still feels weak and numb in the left arm and leg. He denies any other symptoms. INTERVAL HISTORY: 06/15 Patient feels LUE has improved in strength, otherwise no new complaints EXAM: NIHSS 2 (1 LUE motor, 1 sensory) DATA REVIEW: Labs reviewed in EMR A1c 5.4 LDL 80 PERSONALLY INTERPRETED RESULTS AND DATA: CTA head/neck - stable 50% stenosis right carotid bulb extending up to the proximal MARTHA with mixed soft plaque and calcific plaque with tandem high extracranial ICA stenosis of 30%. MRI brain wo - multiple punctate areas of acute infarct in the right frontal cortex and juxtacortical regions, as well as a few areas of cortically-based acute infarct in the right parietal lobe and at least two definite areas of acute infarct in the medial occipital lobe. IMPRESSION AND RECOMMENDATIONS: // ACUTE ISCHEMIC STROKE // MARTHA STENOSIS WITH TANDEM LESIONS // HTN // HLD // HX MULTIPLE PRIOR STROKES Patient with acute ischemic strokes of the right hemisphere manifest as LUE/LLE weakness and numbness. This echols his 3rd ischemic stroke with left-sided deficits (note he experience a stroke in 2008 with LUE weakness). This is in the setting of noncritical MARTHA stenosis with tandem lesions of mixed soft/calcific plaque. The challenging caveat with this stroke is the occipital lobe involvement, which is [place]PERVISOR GROUNDS distribution. He does have a normal cahuilla of Marcum. Certainly he could have embolized to the SUPERVISOR GROUNDS region via the posterior communicating artery. But cardioembolism remains a possible etiology. However, given the known carotid stenosis, and his recurrent strokes manifest as left-sided deficits, I think the carotid is still culprit. For now, I would favor aggressive maximum medical management, as he has not failed this yet (though attempts have been made to start this) and his stenosis is not critical enough for emergent intervention. I still would like him to have an ILR placed - this is scheduled for today - certainly if afib is captured after placement he should be transitioned to anticoagulation. - cont ASA and clopidogrel - goal normotension - this needs to be aggressive - goal long-term SBP should be at least < 130, but ideally < 120. - he should restart statin - he is high risk and needs the pleiotropic benefits of this medication class. Would restart rosuvastatin at 5mg daily. If muscle aches re-emerge, CK must be checked and if normal, then he can reduce his dose to QOD or switch to pravastatin. He could also start ezetimibe in conjunction with statin for aggressive LDL management to get his LDL to a goal of less than 70. - recommend outpatient NICOLAS screening - cardiology placing ILR today - PT/OT/CAR RENTAL AGENT consults - stroke education - followup with PCP immediately after discharge - followup with cardiology at their discretion post-ILR placement - followup neurology clinic in 6 weeks - we will plan on carotid surveillance every 6 months going forward with CTA Long discussion today with patient and regarding risk factor optimization as per above. I advised he take home BP measures at least twice daily and report these to his PCP. I stressed the importance of BP control with his strokes and carotid stenosis. We also discussed the importance of statin medication - both myself and Dr. Ashford stressed the importance of this, and full investigation with CK labs if myalgias emerge, as per above. Will sign off. Recall PRN. 35 minutes spent in direct patient care activities on the floor, with most spent in counseling and coordination of care. Objective: Vital Signs Temp Pulse Resp BP Pulse Ox 37.0 C 63 14 137/80 H 94 06/15/17 08:00 06/15/17 08:00 06/15/17 08:00 06/15/17 08:00 06/15/17 08:00 Laboratory Results 06/14/17 03:55 06/14/17 03:55 06/14/17 06/15/17 06/16/17 05:59 05:59 05:59 Intake Total 750 Output Total 325 Balance -325 750 PT 13.1 SEC (12.0-15.0) 06/14/17 02:51 INR 0.97 (0.83-1.16) 06/14/17 02:51 Allergies/Adverse Reactions: sulfites Allergy (Mild, Uncoded 02/23/17 10:38) GI upset
--- NOTE | 2017-06-15 12:10 | PDIAF ---
- Diagnosis Diagnosis: stroke, R side w L side weakness Code Status: Full Code - Medication Management Discharge Medications: Medications to Continue on Transfer Acetaminophen [Tylenol ES 500 mg (*)] 500 mg PO TID 02/23/17 [Last Taken ] Aspirin [Aspirin 81mg (*)] 81 mg PO DAILY 02/23/17 [Last Taken 06/13/17] Calcium Carbonate [Tums 500MG (*)] 500 - 1,500 mg PO DAILY PRN 02/23/17 [Last Taken 02/22/17] Cholestyramine (with Sugar) [Cholestyramine Packet] 4 gm PO DAILY 02/23/17 [ Last Taken 06/13/17] Clopidogrel Bisulfate [Plavix (*)] 75 mg PO DAILY 02/23/17 [Last Taken 06/13/17] Glucosamine Sulfate [Glucosamine Sulfate 500 MG (*)] 500 mg PO DAILY 02/23/17 [ Last Taken 06/13/17] Herbals/Supplements -Info Only 1 ea PO DAILY 02/23/17 [Last Taken Unknown] Losartan Potassium [Cozaar 50 mg (*)] 100 mg PO DAILY 02/23/17 [Last Taken 06/13] amLODIPine BESYLATE [Norvasc 5 mg (*)] 5 mg PO DAILY #30 tab 02/25/17 [Last Taken 06/13/17] C/E/Zn/Cu/OM3/DHA/EPA/LUT/ZEAX [Preservision Areds 2 Softgel] 1 each PO DAILY [Last Taken 06/13/17] Cholecalciferol Vit D3 [Vitamin D3 2000 units tab (OTC)] 2,000 units PO DAILY [Last Taken 06/13/17] Multivitamins [Multivitamin (*)] 1 each PO DAILY 06/14/17 [Last Taken 06/13/17] Rosuvastatin Calcium [Crestor 5mg] 5 mg PO DAILY 06/14/17 [Last Taken 06/13/17] Discharge Medications: Refer to the Discharge Home Medication list for PRN reason. - Orders Services needed: Physical Therapy, Occupational Therapy Diet Recommendation: cardiac -low fat low salt Diet Texture: Regular Texture Diet - Follow Up Care Current Providers and Referrals: Bill Barahona MD [Primary Care Provider] - As per Instructions Josse Espinoza MD [Medical Doctor] - 06/24/17 3:30 pm
--- NOTE | 2017-06-15 14:00 | ASMTCMCOM ---
CM Note CM Note Notes: Pt medically stable for d/c w [facility] PT/OT, Rashaad notified [facility] be [facility]. Address and phone verified. Date Signed: 06/15/2017 01:59 PM Electronically Signed By:ALEK Lange
--- NOTE | 2017-06-15 14:51 | ASDISCHSUM ---
Discharge Information Plan Status:Home with Home Health Medically Cleared to Leave: Discharge Date:06/15/2017 02:08 PM CM D/C Disposition:Home Health Service ADT D/C Disposition:Home Health Service Projected Discharge Date:06/15/2017 11:00 AM Transportation at D/C:Family Discharge Delay Reason: Follow-Up Date:06/15/2017 11:00 AM Discharge Slot: Final Diagnosis: Placement Information Referral Type:*Home Health Care Services Referral ID:[id number] Provider Name:[facility] Address [address] Address 2: City:[place] Selection Factors: State:[place] Patient Contact Information Contact Name:MARYLOU Relationship: Address:[address] City:[place] Alternate Phone: State/Zip Code:[place] [address] Email: Financial Information Financial Class:Medicare Advantage Plans Primary Plan Desc:[facility] [employer] Primary Plan Number:[id number] Secondary Plan Desc: Secondary Plan Number: Assessment Information [facility] CM Progress Note CM Note CM Note Notes: Pt in for stroke (pts 3rd stroke). SURGICAL SERVICES ASSISTANT rec inpatient rehab vs outpatient, PT eval pending. Chart review indicates last admit 02/20 pt and were adamant pt return home and not consider a rehab placement. CM to follow for d/c needs. Date Signed: 06/14/2017 05:00 PM Electronically Signed By:ALEK Lange [facility] CM Progress Note CM Note CM Note Notes: Pt medically stable for d/c w [facility] PT/OTRashaad notified Orders to be obtained in [employer]. Address and phone verified. Date Signed: 06/15/2017 01:59 PM Electronically Signed By:ALEK Lange Intervention Information
--- NOTE | 2017-06-15 17:37 | HOSPPROG ---
Hospitalist Progress Note Assessment/Plan: DISCHARGE DIAGNOSES: CONSULTANTS: PROCEDURES: HOSPITAL COURSE SUMMARY: PENDING TEST RESULTS: MEDICATION CHANGES: FOLLOW-UP PLAN: Greater than 35 minutes bedside and care coordination time today Objective: Vital Signs Temp Pulse Resp BP Pulse Ox 37.0 C 63 14 137/80 H 94 06/15/17 08:00 06/15/17 08:00 06/15/17 08:00 06/15/17 08:00 06/15/17 08:00 Laboratory Results 06/14/17 03:55 06/14/17 03:55 06/14/17 06/15/17 06/16/17 06:59 06:59 06:59 Intake Total 750 Output Total 325 Balance -325 750 PT 13.1 SEC (12.0-15.0) 06/14/17 02:51 INR 0.97 (0.83-1.16) 06/14/17 02:51 ICD10 Worksheet Patient Problems: Problems Problem Status Onset Stroke Acute Transient cerebral ischemia Acute
--- NOTE | 2017-06-15 17:38 | PDDCSUM ---
Discharge Summary Discharge Summary: DISCHARGE DIAGNOSES: -acute ischemic strokes of the right frontal parietal and occipital lobes with left-sided weakness -new strokes occurred while taking aspirin and Plavix, but off of statin therapy -history of prior strokes and known atherosclerosis of left carotid artery without severe stenosis -absence of atrial fibrillation or other significant arrhythmia on cardiac monitoring here -chronic essential hypertension with inadequate control -history of myalgias while taking low-dose statin along with Questran has led to previous discontinuation of statin medication, currently patient was taking Questran -LDL of 80 at this time CONSULTANTS: Dr. Saul Summers PROCEDURES: CT scan of brain MRI brain CT angio of head and neck Cardiac EKG monitoring Placement of link implanted manager cardiac HOSPITAL COURSE SUMMARY: This patient presented to the hospital with left-sided weakness. His syndrome was acute in onset and suspicious for ischemic stroke. CT scan in the ER did not show any evidence of acute abnormality but MRI of the brain showed ischemic strokes of the right frontal parietal and occipital lobes. There was no evidence of hemorrhage or other acute abnormality. The patient was taking aspirin and Plavix at the time. He had previously had strokes and had been started on statin therapy when imaging studies showed some disease of his left carotid artery. However he had stopped the statin therapy because of some myalgias. It does not sound like he had CPK determinations but we do not have all the records related to this. He was taking Questran at the time of the myalgias on statin therapy. The patient is also hypertensive but not diabetic and has no history of atrial fibrillation. Here in the hospital the patient's presenting weakness symptoms largely resolved and he was doing quite well clinically. He did have some initial elevations of blood pressure which were not beyond our protocols for permissive hypertension in the acute setting. He was started back on his blood pressure medicines the following day and has at the moment very mild hypertension here in the hospital. Without statin therapy at this time his LDL is at 80. He had repeat CT angio of the head and neck and this is showing some soft appearing ulcerated plaque in the left carotid artery without significant stenosis to indicate a vascular intervention procedure. He was monitored on cardiac monitoring and did not show any signs of AFib or other arrhythmia. In reviewing his scenario is clear that this episode has occurred despite aspirin and Plavix and so anti-platelet therapy is not going to be sufficient to prevent stroke for him alone. It is felt there may be room for further improvements in blood pressure control and he is referred to Dr. Barahona to review his medications and blood pressures and to aim for strict control hopefully less than 120/80 over time. In addition with his LDL not at goal in with ulcerated plaque on in angiography by CT, it is strongly recommended that we try and get him back on statin therapy. As he did have some myalgias previously it would be most likely advantages to discontinue his Questran at this time studies less likely to have muscle abnormalities from statin. He is again referred back to Dr. Barahona to look at resuming statin therapy and monitoring that closely for any signs of myopathy with elevations of CPK or intolerable symptoms. In addition the patient does drink some alcohol which may affect his vascular disease and his blood pressure. It is recommend that to him at this time along with his participating in the conversation that he limit himself to no more than 1 alcohol drink per day and probably best to avoid altogether. In addition an implanted manager cardiac was placed today by Dr. Page and he will follow up closely for with Dr. Page for any the possible finding of atrial fibrillation which would clearly indicate anticoagulant therapy. Is recommended strongly that he continue his aspirin and Plavix at this time for any benefit they may confer. I did make an appointment with the patient see Dr. Barahona tomorrow at 3 o'clock in the afternoon. PENDING TEST RESULTS: None MEDICATION CHANGES: recommended that he resume his statin therapy and consider stopping his Questran therapy but he will follow up with Dr. Barahona for ongoing risk management FOLLOW-UP PLAN: With Dr. Page for his manager cardiac With Dr. Figueroa in 6 weeks Greater than 35 minutes bedside and care coordination time today
== END 2017-06-15 14:08 | disposition home health service (06) ==
LOC: F3N 04:47
PROVIDERS: ADMIT Student in an Organized Health Care Education/Training Program; ATTEND Student in an Organized Health Care Education/Training Program
PROC: 0JH60PZ Insertion of Cardiac Rhythm Related Device into Chest Subcutaneous Tissue and Fascia, Open Approach (ICD-10-PCS; principal; 2017-06-14)
DX: I63.9 Cerebral infarction, unspecified (principal); G81.94 Hemiplegia, unspecified affecting left nondominant side; I65.22 Occlusion and stenosis of left carotid artery; I10 Essential (primary) hypertension; Z79.02 Long term (current) use of antithrombotics/antiplatelets; Z79.82 Long term (current) use of aspirin
CPT/HCPCS: 33282; 70450; 70496; 70498; 70551; 92523; 93005; 97116; 97162; 99285; C1764; G0378; G8978; G8979; G9168; G9169; J2405; Q9967; 82947-QW; G0480

== ENCOUNTER 2018-11-27 13:26 | Emergency (ER) | payer OTHER | END 2018-11-27 15:08 | disposition home or self-care (01) ==